=== PATIENT | male | born 1950 | race Caucasian/White ===

== ENCOUNTER → 2018-09-28 | Outpatient (CLI) | payer OTHER | END | disposition home or self-care (01) | LOC: CARD 12:40 | PROVIDERS: ATTEND Nurse Practitioner Acute Care | DX: F03.91 Unspecified dementia, unspecified severity, with behavioral disturbance (principal); I10 Essential (primary) hypertension; I45.19 Other right bundle-branch block; I42.9 Cardiomyopathy, unspecified; E78.2 Mixed hyperlipidemia; F41.9 Anxiety disorder, unspecified; F10.20 Alcohol dependence, uncomplicated; F10.282 Alcohol dependence with alcohol-induced sleep disorder; Z96.651 Presence of right artificial knee joint; Z79.899 Other long term (current) drug therapy | CPT/HCPCS: 95819 ==